=== PATIENT | female | born 1945 | race Two or more races ===

== ENCOUNTER 2024-08-20 09:11 | Outpatient (CLI) | payer OTHER | END 2024-08-20 09:18 | disposition home or self-care (01) | LOC: NUCLEAR 09:11 | PROVIDERS: ATTEND Internal Medicine Hematology & Oncology | DX: I73.9 Peripheral vascular disease, unspecified (principal); I87.2 Venous insufficiency (chronic) (peripheral); I10 Essential (primary) hypertension; G47.33 Obstructive sleep apnea (adult) (pediatric) ==

== ENCOUNTER 2024-08-21 09:20 | Outpatient (CLI) | payer OTHER | END 2024-08-21 09:23 | disposition home or self-care (01) | LOC: NUCLEAR 09:20 | PROVIDERS: ATTEND Internal Medicine Hematology & Oncology | DX: I70.213 Atherosclerosis of native arteries of extremities with intermittent claudication, bilateral legs (principal) ==